=== PATIENT | male | born 1990 | race Caucasian/White ===

== ENCOUNTER 2016-12-25 21:30 | Emergency (ER) | payer MEDICAID ==
[~2016-12-25] VITALS: Ht 175.3 cm; Wt 125.5 kg
[2016-12-25 21:33] VITALS: Ht 175.3 cm; Wt 125.5 kg
[2016-12-25] MEDS ORDERED: CETI10CA PO (21:56)
[2016-12-25] MEDS ORDERED: TRAM50TA2 PO (21:56)
[2016-12-25] MEDS ORDERED: IBUP-1542 PO (21:56)
[2016-12-25] MEDS ORDERED: AZIT250T94 PO (21:56)
--- NOTE | 2016-12-25 22:20 | ERD ---
ER Documentation Chief Complaint Date/Time DATE: 12/25/16 TIME: 22:19 Chief Complaint Left ear pain x2 weeks HPI 26-year-old male presents here in emergency department for complaint of left ear pain for 2 weeks. Patient described the pain as throbbing pain, 6/10 scale, not better or worse with anything. Patient denies any fever or chills. Patient is for medicine patient in the ear. Patient's complaining of congestion in the left ear. Patient denies any problems with hearing. Patient took some ibuprofen for pain with mild relief. Patient denies any ear discharge. ROS All systems reviewed and are negative except as per history of present illness. Medications Home Meds Active Scripts Cetirizine Hcl* (Zyrtec*) 10 Mg Capsule, 10 MG PO DAILY, #30 TAB.CHEW Prov:CHE GARZA NP 12/25/16 Azithromycin* (Zithromax*) 250 Mg Tablet, 250 MG PO .ZPACK DIRECTED, #6 TAB TAKE 500 MG (2 TABS) THE FIRST DAY THEN 250 MG (1 TAB) DAYS 2-5 Prov:CHE GARZA NP 12/25/16 Ibuprofen* (Motrin*) 600 Mg Tab, 600 MG PO Q6H Y for PAIN AND OR ELEVATED TEMP, #30 TAB Prov:CHE GARZA NP 12/25/16 Tramadol HCl (Tramadol HCl) 50 Mg Tablet, 50 MG PO Q6 Y for SEVERE PAIN LEVEL 7- 10, #20 TAB Prov:CHE GARZA NP 12/25/16 Allergies Allergies: Coded Allergies: Penicillins (Unverified Allergy, Severe, 12/25/16) PMhx/Soc Medical and Surgical Hx: pt denies Medical Hx, pt denies Surgical Hx FmHx Family History: No coronary disease, No diabetes, No other Physical Exam Vitals Vital Signs Date Time Temp Pulse Resp B/P Pulse Ox O2 Delivery O2 Flow Rate FiO2 12/25/16 21:33 99.1 89 18 133/75 97 Physical Exam GENERAL: The patient is well developed and appropriate for usual state of health, in no apparent distress. HEENT: Atraumatic. Ears: Left ear tympanic membrane is noted to be erythematous and bulging. Normal right tympanic membrane, no erythema or bulging. No ear canal swelling. No ear discharge. Nose: normal nasal turbinates, no erythema or swelling. Normal nasal discharge. Throat: oropharynx clear. No tonsillar swelling or tonsillar exudates. No lymphadenopathy. CHEST: Clear to auscultation bilaterally. There are no rales, wheezes or rhonchi. HEART: Regular rate and rhythm. No murmurs, clicks, rubs or gallops. No S3 or S4. ABDOMEN: Soft, nontender and nondistended. Good bowel sounds. No rebound or guarding. No gross peritonitis. No gross organomegaly or masses. No Dsouza sign or McBurney point tenderness. BACK: No midline or flank tenderness. EXTREMITIES: Equal pulses bilaterally. There is no peripheral clubbing, cyanosis or edema. No focal swelling or erythema. Full range of motion. Grossly neurovascularly intact. NEURO: Alert and oriented. Cranial nerves 2-12 intact. Motor strength in all 4 extremities with 5/5 strength. Sensation grossly intact. Normal speech and gait. SKIN: There is no apparent rash or petechia. The skin is warm and dry. HEMATOLOGIC AND LYMPHATIC: There is no evidence of excessive bruising or lymphedema. No gross cervical, axillary, or inguinal lymphadenopathy. Procedures/MDM Medical decision making: Patient symptoms is most active consistent with left otitis media. No symptoms of otitis externa or mastoiditis. No foreign body in the ear. No tympanic membrane perforation noted. No cerumen impaction noted. No symptoms of sepsis at this time. Patient upper spine is hemodynamically stable. Prescription was given for azithromycin, ibuprofen, tramadol, Zyrtec, is advised to follow-up with primary care doctor 1-2 days for reevaluation of symptoms. Patient was advised to return to emergency department for any worsening symptoms. Departure Diagnosis: Primary Impression: Left otitis media Otitis media type: serous Chronicity: acute Recurrence: not specified as recurrent Qualified Code: H65.02 - Acute serous otitis media of left ear, recurrence not specified Condition: Stable Patient Instructions: Otitis Media, Abx Tx (Adult) Referrals: [facility] YOU HAVE RECEIVED A MEDICAL SCREENING EXAM AND THE RESULTS INDICATE THAT YOU DO NOT HAVE A CONDITION THAT REQUIRES URGENT TREATMENT IN THE EMERGENCY DEPARTMENT. FURTHER EVALUATION AND TREATMENT OF YOUR CONDITION CAN WAIT UNTIL YOU ARE SEEN IN YOUR DOCTORS OFFICE WITHIN THE NEXT 1-2 DAYS. IT IS YOUR RESPONSIBILITY TO MAKE AN APPOINTMENT FOR FOLOW-UP CARE. IF YOU HAVE A PRIMARY DOCTOR --you should call your primary doctor and schedule an appointment IF YOU DO NOT HAVE A PRIMARY DOCTOR YOU CAN CALL OUR PHYSICIAN REFERRAL HOTLINE AT IF YOU CAN NOT AFFORD TO SEE A PHYSICIAN YOU CAN CHOSE FROM THE FOLLOWING [facility] [address] [facility] [address] [facility] [address] [facility] [address] [facility] [address] [facility]. [facility] [address] [facility]. [facility] YOU HAVE RECEIVED A MEDICAL SCREENING EXAM AND THE RESULTS INDICATE THAT YOU DO NOT HAVE A CONDITION THAT REQUIRES URGENT TREATMENT IN THE EMERGENCY DEPARTMENT. FURTHER EVALUATION AND TREATMENT OF YOUR CONDITION CAN WAIT UNTIL YOU ARE SEEN IN YOUR DOCTORS OFFICE WITHIN THE NEXT 1-2 DAYS. IT IS YOUR RESPONSIBILITY TO MAKE AN APPOINTMENT FOR FOLOW-UP CARE. IF YOU HAVE A PRIMARY DOCTOR --you should call your primary doctor and schedule and appointment IF YOU DO NOT HAVE A PRIMARY DOCTOR YOU CAN CALL OUR PHYSICIAN REFERRAL HOTLINE AT . IF YOU CAN NOT AFFORD TO SEE A PHYSICIAN YOU CAN CHOSE FROM THE FOLLOWING [facility]: [facility] [address] [place] [address] [facility] [address] [place] [address] [facility] [address] [place] [address] [facility] CHE GARZA NP Dec 25, 2016 22:20
== END 2016-12-25 21:58 | disposition home or self-care (01) ==
LOC: E/R 21:30
DX: H65.02 Acute serous otitis media, left ear (principal)
CPT/HCPCS: 99283

== ENCOUNTER 2017-04-11 13:40 | Emergency (ER) | payer MEDICAID, OTHER ==
[~2017-04-11] VITALS: Ht 182.9 cm; Wt 120.0 kg
[~2017-04-11 13:40] MED LIST: AZIT250T94 PO; CETI10CA PO; IBUP-1542 PO; TRAM50TA2 PO
[2017-04-11 13:44] VITALS: Ht 182.9 cm; Wt 120.0 kg
[2017-04-11] MEDS ORDERED: LORAZEPAM 2 MG INJ IM STA (14:45)
[2017-04-11 15:05] LABS: ADD SCAN DIFF NO
[2017-04-11 15:12] LABS: BASOPHIL # 0.1 10^3/ul (0.0-0.1); BASOPHILS % 0.7 % (0.0-2.0); EOSINOPHILS # 0.1 10^3/ul (0.0-0.5); EOSINOPHILS % 0.8 % (0.0-7.0); HEMATOCRIT 44.5 % (42.0-52.0); HEMOGLOBIN 15.9 g/dl (14.0-18.0); LYMPHOCYTES # 1.9 10^3/ul (0.8-2.9); LYMPHOCYTES % 17.4 % (15.0-51.0); MEAN CORPUSCULAR HEMOGLOBIN 31.1 pg (29.0-33.0); MEAN CORPUSCULAR HGB CONC 35.7 g/dl (32.0-37.0); MEAN CORPUSCULAR VOLUME 87.1 fl (82.0-101.0); MEAN PLATELET VOLUME 10.1 fl (7.4-10.4); MONOCYTES % 9.3 % (0.0-11.0); NEUTROPHIL # 7.7 10^3/ul (1.6-7.5); NEUTROPHILS % 71.2 % (39.0-77.0); PLATELET COUNT 322 10^3/UL (140-415); RED BLOOD COUNT 5.11 10^6/ul (4.70-6.10); RED CELL DISTRIBUTION WIDTH 12.3 % (11.5-14.5); WHITE BLOOD COUNT 10.8 10^3/ul (4.8-10.8)
[2017-04-11 15:38] LABS: ALANINE AMINOTRANSFERASE 69 IU/L (13-69); ALBUMIN 5.4 g/dl (3.3-4.9); ALBUMIN/GLOBULIN RATIO 1.74; ALKALINE PHOSPHATASE 75 IU/L (42-121); ANION GAP 18 (8-16); ASPARTATE AMINO TRANSFERASE 62 IU/L (15-46); BILIRUBIN,INDIRECT 2.4 mg/dl (0-1.1); BILIRUBIN,TOTAL 2.4 mg/dl (0.2-1.3); BLOOD UREA NITROGEN 13 mg/dl (7-20); CALCIUM 9.5 mg/dl (8.4-10.2); CARBON DIOXIDE 24 mmol/L (21-31); CHLORIDE 104 mmol/L (97-110); CREATININE 1.21 mg/dl (0.61-1.24); ETHANOL < 10.0 mg/dl; GLUCOSE 121 mg/dl (70-220); POTASSIUM 3.3 mmol/L (3.5-5.1); SODIUM 143 mmol/L (135-144); TOTAL PROTEIN 8.5 g/dl (6.1-8.1)
[2017-04-11 15:53] LABS: TROPONIN-I < 0.012 ng/ml (0.00-0.12)
[2017-04-11] MEDS ORDERED: ESOM20CA PO (16:23)
[2017-04-11] MEDS ORDERED: FEXO180T61 PO (16:24)
[2017-04-11 17:51] VITALS: PULSE 104; RESP 22
[2017-04-11] MEDS ORDERED: HALOPERIDOL 5 MG INJ ONE (18:14)
--- NOTE | 2017-04-11 18:18 | PSY ---
Date/Time of Note Date/Time of Note DATE: 04/11/17 TIME: 18:14 Psychiatric Subjective Eval Consent Pt consented to telemedicine: Yes Subjective Evaluation Patient location: emergency Chief Complaint: HEARING VOICES, OFF BIPOLAR MEDS SINCE OCTOBER, USED CRYSTAL METH UNTIL YES History of present illness 26 yo male self presenting to ED c/o hearing derogatory and threatening voices after yesterday cocaine and amphetamne use; pt states he is here breann zimmerman was "freakng out". he is still anxious and paranoid. He denies si or hi, but admit sot feeling depressed and anxious. He has a hx schizoaffective d/o "I always hear vocies", but off meds since 11/06 - moved to from [place]. Pt wants ot be released. he does not recall his past meds. No SI or HI. + PI, no VH Past psychiatric history prior inpt Hospitalization: yes Family History denies Medical history Problems Medical Problems: (1) Left otitis media Status: Acute Allergies: Coded Allergies: Penicillins (Unverified Allergy, Severe, 04/11/17) Substance Abuse Substance abuse history: Yes Prior substance abuse treatmen: Yes Social History Marital status: single Level of education: hs DPA/Conservatorship: No Occupation/Fci: unemployed Psychiatric Objective Eval Review of Systems: Review of Systems: Not Applicable Physical Examination: Physical Examination: Not Applicable Sleep: Insomnia Appetite: Adequate Energy: Adequate Interest: Adequate Mental Status Examination: Appearance: Disheveled Eye Contact: Good Psychomotor Activity: Normal Behavior: Cooperative Speech: Clear AFFECT: Appropriate Mood: Anxious Though Process: Linear Thought Content: Hallucinations Suicidal: No Homicidal: No On 72 hour hold: No Orientation: x4 Cognition: Alert Insight: Impared Judgement: Impared Laboratory Results Laboratory Tests Test 04/11/17 14:50 White Blood Count 10.810^3/ul Red Blood Count 5.1110^6/ul Hemoglobin 15.9g/dl Hematocrit 44.5% Mean Corpuscular Volume 87.1fl Mean Corpuscular Hemoglobin 31.1pg Mean Corpuscular Hemoglobin Concent 35.7g/dl Red Cell Distribution Width 12.3% Platelet Count 90879^3/UL Mean Platelet Volume 10.1fl Neutrophils % 71.2% Lymphocytes % 17.4% Monocytes % 9.3% Eosinophils % 0.8% Basophils % 0.7% Nucleated Red Blood Cells % 0.0/100WBC Neutrophils # 7.710^3/ul Lymphocytes # 1.910^3/ul Monocytes # 1.010^3/ul Eosinophils # 0.110^3/ul Basophils # 0.110^3/ul Nucleated Red Blood Cells # 0.010^3/ul Sodium Level 143mmol/L Potassium Level 3.3mmol/L Chloride Level 104mmol/L Carbon Dioxide Level 24mmol/L Anion Gap 18 Blood Urea Nitrogen 13mg/dl Creatinine 1.21mg/dl Glucose Level 121mg/dl Calcium Level 9.5mg/dl Total Bilirubin 2.4mg/dl Direct Bilirubin 0.00mg/dl Indirect Bilirubin 2.4mg/dl Aspartate Amino Transf (AST/SGOT) 62IU/L Alanine Aminotransferase (ALT/SGPT) 69IU/L Alkaline Phosphatase 75IU/L Troponin I < 0.012ng/ml Total Protein 8.5g/dl Albumin 5.4g/dl Globulin 3.10g/dl Albumin/Globulin Ratio 1.74 Ethyl Alcohol Level < 10.0mg/dl Assessment and Plan Assessment/Diagnosis [place] I: SCHIZOAFFECTIVE D/O. POLYSUBSTANCE DEPENDENCE [place] II: DEFERED [place] III: PER RECORD [place] IV: MODERATE [place] V: GAF 40 Recommendation/Plan Medication Management ZYPREXA 10 MG POQHS #30 Psychotherapy REFER TO [facility] Follow-up/Disposition NO DTS, DTO,GD; PLEASE DISCHARGE WITH OUTPT REFERRALS VIC MIRANDA MD Apr 11, 2017 18:18
[2017-04-11] MEDS ORDERED: HALOPERIDOL 5 MG INJ IM ONE (18:30)
[2017-04-11] MEDS ORDERED: OLAN10TA7 PO (19:09)
--- NOTE | 2017-04-11 20:02 | ERD ---
ER Documentation Chief Complaint Date/Time DATE: 04/11/17 TIME: 19:56 Chief Complaint HEARING VOICES, OFF BIPOLAR MEDS SINCE OCTOBER, USED CRYSTAL METH UNTIL YES HPI 26-year-old man here for agitation and methamphetamine abuse. Patient states he has a history of bipolar disorder but does not recall the medications he used to use to control his symptoms. He states he always has auditory hallucinations. He denies having a plan to kill himself, hurt himself, or her others. Patient denies other symptoms including no chest pain or shortness of breath. ROS All systems reviewed and are negative except as per history of present illness. Medications Home Meds Active Scripts Olanzapine* (Zyprexa*) 10 Mg Tablet, 10 MG PO QHS, #30 TAB Prov:IGNACIO VELASQUEZ MD 04/11/17 Reported Medications Fexofenadine Hcl* (Soumya*) 180 Mg Tablet, 180 MG PO DAILY, #30 TAB 04/11/17 Esomeprazole Mag Trihydrate (Nexium) 20 Mg Capsule.dr, 20 MG PO DAILY, #30 CAP 04/11/17 Discontinued Scripts Cetirizine Hcl* (Zyrtec*) 10 Mg Capsule, 10 MG PO DAILY, #30 TAB.CHEW Prov:CHE GARZA NP 12/25/16 Azithromycin* (Zithromax*) 250 Mg Tablet, 250 MG PO .ZPACK DIRECTED, #6 TAB TAKE 500 MG (2 TABS) THE FIRST DAY THEN 250 MG (1 TAB) DAYS 2-5 Prov:CHE GARZA NP 12/25/16 Ibuprofen* (Motrin*) 600 Mg Tab, 600 MG PO Q6H Y for PAIN AND OR ELEVATED TEMP, #30 TAB Prov:CHE GARZA NP 12/25/16 Tramadol HCl (Tramadol HCl) 50 Mg Tablet, 50 MG PO Q6 Y for SEVERE PAIN LEVEL 7- 10, #20 TAB Prov:CHE GARZA NP 12/25/16 Allergies Allergies: Coded Allergies: Penicillins (Unverified Allergy, Severe, 04/11/17) PMhx/Soc Bipolar disorder, drug abuse Medical and Surgical Hx: pt denies Surgical Hx Hx Psychiatric Problems: Yes (BIPOLAR) Hx Alcohol Use: Yes Hx Substance Use: Yes (METH) Hx Tobacco Use: Yes Smoking Status: Current every day smoker FmHx Family History: No diabetes Physical Exam Vitals Vital Signs Date Time Temp Pulse Resp B/P Pulse Ox O2 Delivery O2 Flow Rate FiO2 04/11/17 17:51 104 22 99 04/11/17 13:44 98.1 90 18 160/89 99 Physical Exam GENERAL: Well-developed, well-nourished, agitated, appears intoxicated HEENT: Moist mucous membranes, pink conjunctiva, no cervical spine tenderness or step-off deformities, no goiter, no jaundice or icterus, extraocular movements intact without pain. No submandibular induration, and no pharyngeal erythema NEURO: Alert and oriented 3, cranial nerves II through XII intact bilaterally, pupils equal round reactive to light, no focal deficits or facial asymmetry, sensation intact distally Strength 5/5 in upper and lower extremities bilaterally CARDIAC: Regular rate and rhythm, no murmurs rubs or gallops LUNGS: Clear bilaterally no wheezing crackles or stridor ABDOMEN: Soft nontender, no guarding, no rigidity, no rebound, no psoas sign no obturator sign. Normoactive bowel sounds SKIN: Warm and dry to touch, no abrasions, contusions, or hematomas, no lacerations, no ecchymosis, no target lesions, and without ulcers EXTREMITIES: No clubbing cyanosis or edema, calves are bilaterally symmetrical, no Homans sign, no popliteal cord sign. Distal pulses equal and bilateral PSYCH: Agitated Result Diagram: 04/11/17 1450 04/11/17 1450 Results 24 hrs Laboratory Tests Test 04/11/17 14:50 White Blood Count 10.810^3/ul Red Blood Count 5.1110^6/ul Hemoglobin 15.9g/dl Hematocrit 44.5% Mean Corpuscular Volume 87.1fl Mean Corpuscular Hemoglobin 31.1pg Mean Corpuscular Hemoglobin Concent 35.7g/dl Red Cell Distribution Width 12.3% Platelet Count 70257^3/UL Mean Platelet Volume 10.1fl Neutrophils % 71.2% Lymphocytes % 17.4% Monocytes % 9.3% Eosinophils % 0.8% Basophils % 0.7% Nucleated Red Blood Cells % 0.0/100WBC Neutrophils # 7.710^3/ul Lymphocytes # 1.910^3/ul Monocytes # 1.010^3/ul Eosinophils # 0.110^3/ul Basophils # 0.110^3/ul Nucleated Red Blood Cells # 0.010^3/ul Sodium Level 143mmol/L Potassium Level 3.3mmol/L Chloride Level 104mmol/L Carbon Dioxide Level 24mmol/L Anion Gap 18 Blood Urea Nitrogen 13mg/dl Creatinine 1.21mg/dl Glucose Level 121mg/dl Calcium Level 9.5mg/dl Total Bilirubin 2.4mg/dl Direct Bilirubin 0.00mg/dl Indirect Bilirubin 2.4mg/dl Aspartate Amino Transf (AST/SGOT) 62IU/L Alanine Aminotransferase (ALT/SGPT) 69IU/L Alkaline Phosphatase 75IU/L Troponin I < 0.012ng/ml Total Protein 8.5g/dl Albumin 5.4g/dl Globulin 3.10g/dl Albumin/Globulin Ratio 1.74 Ethyl Alcohol Level < 10.0mg/dl Current Medications Medications (Trade) Dose Ordered Sig/Izaiah Route PRN Reason Start Time Stop Time Status Last Admin Dose Admin Lorazepam (Ativan) 2 mg ONCE STAT IM 04/11/17 14:45 04/11/17 14:47 DC 04/11/17 15:10 Haloperidol (Haldol) 5 mg ONCE ONCE IM 04/11/17 18:30 04/11/17 18:31 DC 04/11/17 18:18 Haloperidol (Haldol) 5 mg STK-MED ONCE .ROUTE 04/11/17 18:14 04/11/17 18:15 DC Procedures/MDM I administered lorazepam 2 mg intramuscular injection to help control his symptoms. CBC and electrolytes are normal, liver function tests unremarkable, troponin negative, alcohol level negative. For continued agitation patient received haloperidol 5 mg intramuscular injection with good effect. Patient's behavioral symptoms have stabilized while in the department. Patient is medically cleared and appropriate for psychiatric evaluation and work up. No e/o neurologic, toxic, infectious, or metabolic cause. Tele-psychiatry consultation was obtained, Dr. Coreas spoke to the patient at the bedside and recommended outpatient management with olanzapine nightly, which I prescribed. Differential diagnoses considered, included but not limited to acute coronary syndrome, pulmonary embolism, aortic dissection, abdominal aortic aneurysm, sepsis, stroke, meningitis, encephalitis, pneumonia, appendicitis, cholecystitis , bowel obstruction, pyelonephritis, nephrolithiasis, cystitis, as well as metabolic, hematologic, and electrolyte abnormalities. As well as abscess, cellulitis, fractures, and dislocations. Patient feels much better at this time, and vital signs are normal, symptoms have improved. I did give strict instructions to return to the ED if symptoms continue or worsen, patient will otherwise follow-up with primary care physician. Patient understood instructions and agreed to plan. Disclaimer: Inadvertent spelling and grammatical errors are likely due to EHR/ dictation software use and do not reflect on the overall quality of patient care. Also, please note that the electronic time recorded on this note does not necessarily reflect the actual time of the patient encounter. Departure Diagnosis: Primary Impression: Bipolar 1 disorder Additional Impression: Methamphetamine abuse Condition: Stable Patient Instructions: Bipolar Disorder Referrals: [facility] YOU HAVE RECEIVED A MEDICAL SCREENING EXAM AND THE RESULTS INDICATE THAT YOU DO NOT HAVE A CONDITION THAT REQUIRES URGENT TREATMENT IN THE EMERGENCY DEPARTMENT. FURTHER EVALUATION AND TREATMENT OF YOUR CONDITION CAN WAIT UNTIL YOU ARE SEEN IN YOUR DOCTORS OFFICE WITHIN THE NEXT 1-2 DAYS. IT IS YOUR RESPONSIBILITY TO MAKE AN APPOINTMENT FOR FOLOW-UP CARE. IF YOU HAVE A PRIMARY DOCTOR --you should call your primary doctor and schedule an appointment IF YOU DO NOT HAVE A PRIMARY DOCTOR YOU CAN CALL OUR PHYSICIAN REFERRAL HOTLINE AT IF YOU CAN NOT AFFORD TO SEE A PHYSICIAN YOU CAN CHOSE FROM THE FOLLOWING [facility] [address] [facility]. [facility] [address] [facility] [facility] [address] [facility]. [facility] [address] [facility] [address] [facility]. [facility]. [address] [facility]. [facility] YOU HAVE RECEIVED A MEDICAL SCREENING EXAM AND THE RESULTS INDICATE THAT YOU DO NOT HAVE A CONDITION THAT REQUIRES URGENT TREATMENT IN THE EMERGENCY DEPARTMENT. FURTHER EVALUATION AND TREATMENT OF YOUR CONDITION CAN WAIT UNTIL YOU ARE SEEN IN YOUR DOCTORS OFFICE WITHIN THE NEXT 1-2 DAYS. IT IS YOUR RESPONSIBILITY TO MAKE AN APPOINTMENT FOR FOLOW-UP CARE. IF YOU HAVE A PRIMARY DOCTOR --you should call your primary doctor and schedule and appointment IF YOU DO NOT HAVE A PRIMARY DOCTOR YOU CAN CALL OUR PHYSICIAN REFERRAL HOTLINE AT . IF YOU CAN NOT AFFORD TO SEE A PHYSICIAN YOU CAN CHOSE FROM THE FOLLOWING [facility]IONS: [facility] [address] [place] [address] [facility] [address] [place] [address] [facility] [address] [place] [address] IGNACIO VELASQUEZ MD Apr 11, 2017 20:02
== END 2017-04-11 18:33 | disposition left against medical advice (07) ==
LOC: E/R 13:40
DX: F31.9 Bipolar disorder, unspecified (principal); F15.10 Other stimulant abuse, uncomplicated; F17.210 Nicotine dependence, cigarettes, uncomplicated
CPT/HCPCS: 80053; 80306; 84484; 85025; 96372; J1630; J2060; Z7502